=== PATIENT | female | born 1955 | race Caucasian/White ===

== ENCOUNTER → 2017-01-29 | Day surgery (SDC) | payer BC ==
[~2017-01-29] MED LIST: HYDROmorphone 2 MG/ML VIAL IV PRN; IV RINGERS,LACTATED 1000ML 1,000 ML IV SCH; LIDOCAINE 1% PF 2 ML VIAL. ID PRN; LIDOCAINE 2% PF Vial for OR 5 ML VIAL. ONE; MORPHINE SULFATE 2 MG/ML DISP.SYRIN. IV PRN; NORT25CA PO; ONDANSETRON PF 4 MG/2 ML VIAL. IV PRN; PARO40TA61 PO; PRAM0.255 PO; PROCHLORPERAZINE 10 MG/2 ML VIAL. IV PRN; PROPOFOL 40 ML IV ONE; RIVA1PAT22 TP; fentaNYL PF VIAL 100 MCG/2 ML VIAL IV PRN
[2017-01-29 12:15] VITALS: BP 119/63
--- NOTE | 2017-01-30 11:15 | PATHOLOGY ---
PATHOLOGY REPORT * * * * * * * * FINAL DIAGNOSIS: A. Small bowel biopsy: - No significant pathologic abnormalities. B. Gastric biopsy, antrum: - Congestion, slight chronic inflammation, and focal intestinal metaplasia. C. Esophageal biopsy, distal esophagus: - Segments of focally hyperplastic squamous esophageal mucosa, esophagogastric mucosa, and gastric mucosa showing chronic inflammation, consistent with reflux esophagitis. (JPM:mikey; 01/30/2017) COMMENT: Sections of the small bowel biopsy reveal segments of duodenal mucosa. Where best oriented, the mucosal villi appear normal. There are no sprue-like changes or significant inflammatory changes. Sections of the gastric antral biopsy show congestion, slight chronic inflammation, and focal microscopic intestinal metaplasia. An immunoperoxidase stain for Helicobacter is obtained. No Helicobacter organisms are identified. Sections of the distal esophageal biopsy reveal segments of focally hyperplastic squamous esophageal mucosa, esophagogastric, and gastric mucosa showing mild to moderate chronic inflammation. The findings are consistent with reflux esophagitis. There is no evidence of Casillas's change, dysplasia, or malignancy. Special stain performed: Immunoperoxidase stain for Helicobacter on B1. (JPM:mikey; 01/30/2017) REPORT ELECTRONICALLY SIGNED BY: Elias Lepe M.D. DATE/TIME: 01/30/2017 11:14 * * * * * * * * GROSS PATHOLOGY: A. Received in formalin labeled "Jovanny Dereje, small bowel BX," are 4 segments of cagle soft tissue measuring 1.4 x 0.5 x 0.3 cm in aggregate dimensions and ranging from 0.3 to 0.4 cm in maximum dimension. The specimen is submitted entirely in cassette A1. B. Received in formalin labeled "Jovanny Nicoleander, antrum BX," are 2 segments of cagle soft tissue measuring 0.6 x 0.3 x 0.2 cm in aggregate dimensions and measuring 0.3 cm each in maximum dimension. The specimen is submitted entirely in cassette B1. C. Received in formalin labeled "Jovanny Dereje, distal esophagus BX," are 4 segments of cagle soft tissue measuring 1.5 x 0.4 x 0.3 cm in aggregate dimensions and ranging from 0.2 to 0.5 cm in maximum dimension. The specimen is submitted entirely in cassette C1. (TSD; 01/29/2017) INITIAL CPT CODE(S): A; 86108 B; 32748, 85037 C; 83574 Professional services performed by [facility] at [facility] [address] [place] [id number] Technical services performed by [facility] at [address] [place] [address], [facility] [address], [place] [address]. SPECIMEN(S) RECEIVED: A.Small bowel biopsy B.Antrum biopsy C.Distal esophagus biopsy CLINICAL HISTORY: History of reflux, screening PATIENT: JOVANNY GRACE /AGE: 507/27/1955 (Age: 61) PATIENT #: [id number] ALT CASE #: SPECIMEN COLLECTION DATE: 01/29/2017 SPECIMEN RECEIVED DATE: 01/29/2017 [facility] - [address] [place] [address] - PHONE: [phone] * * * END OF REPORT * * *
== END | disposition home or self-care (01) ==
LOC: SURG 09:17
PROVIDERS: ATTEND Internal Medicine Gastroenterology
DX: Z12.11 Encounter for screening for malignant neoplasm of colon (principal); K64.0 First degree hemorrhoids; K21.0 Gastro-esophageal reflux disease with esophagitis; K31.89 Other diseases of stomach and duodenum
CPT/HCPCS: 43239; 45378; J2704; 88305; 88342; J2001